=== PATIENT | male | born 1980 | race Caucasian/White ===

== ENCOUNTER 2021-10-30 09:35 | Emergency (ER) | payer OTHER ==
[~2021-10-30] VITALS: Ht 190.5 cm; Wt 99.8 kg
[~2021-10-30 09:35] MED LIST: HYDACE5 PO
== END 2021-10-30 14:07 | disposition home or self-care (01) ==
LOC: ER 09:35
DX: S09.90XA Unspecified injury of head, initial encounter (principal); S01.81XA Laceration without foreign body of other part of head, initial encounter; W20.8XXA Other cause of strike by thrown, projected or falling object, initial encounter
CPT/HCPCS: 12002; 99283-25